=== PATIENT | female | born 1995 | race Caucasian/White ===

== ENCOUNTER 2016-12-09 11:36 | Emergency (ER) | payer OTHER ==
[~2016-12-09] VITALS: Ht 154.9 cm; Wt 47.7 kg
[~2016-12-09 11:36] MED LIST: CIPR-231 PO; NOMED; PHEN-684 PO
[2016-12-09 11:44] VITALS: BP 147/91; PULSE 103; RESP 15; O2SAT 99
[2016-12-09] MEDS ORDERED: 0.9% Sodium Chloride 1,000 ML IV ONE (11:56)
[2016-12-09] MEDS ORDERED: Ondansetron 2 mg/mL 2 mL Inj IVPUSH ONE (12:00)
--- NOTE | 2016-12-09 12:03 | ED.REPORT ---
HPI-Abd Pain F Under 38 Date of Service Dec 09, 2016 ED Provider: Ricardo Kaur PA-C Ángela is an otherwise healthy 21-year-old female who presents with chief complaint of flank pain. Patient states that she developed dysuria approximately one week ago, and hematuria approximately 5 days ago. She attempted to treat herself with Pyridium, but yesterday she developed back pain and vomiting. Patient reports that she has a history of kidney infections, which have felt similar to this in the past. The patient notes blood "almost like my period" when she urinates. She admits abdominal pain, which he locates to her bilateral lower abdomen. Denies fever, chills, diarrhea, vaginal discharge, , sexual activity. Nursing Notes Stated Complaint: POSS BLADDER INFECTION/BACK PAIN Chief Complaint: Female Abdominal Pain Nursing Notes Reviewed: Yes Allergies: Coded Allergies: Penicillins (Verified Allergy, Intermediate, Nausea,Vomiting, 12/09/16) Scheduled Ciprofloxacin (Cipro) 500 Mg Tablet 500 MG PO BID Levofloxacin (Levofloxacin) 750 Mg Tablet 750 MG PO DAILY Scheduled PRN Metoclopramide (Reglan) 10 Mg Tablet 10 MG PO QID PRN PRN For Nausea Phenazopyridine (Pyridium) 200 Mg Tablet 200 MG PO TID PRN PRN For Pain Miscellaneous Medications No Historical Medication (No Historical Medication) Ea General Time Seen by MD: 11:47 Chief Complaint Other (back pain, dysuria, hematuria) Past Medical History Past Medical History Pt denies Past Surgical History Reports: Tonsillectomy Family History Patient denies Smoking History Current Every Day Smoker Social History Alcohol Use: Denies alcohol use Drug Use: Denies drug use Occupation lives with and daughter, No outside work or school Review of Systems Negative unless stated otherwise in history of present illness. Physical Exam General: Well appearing, well developed, thin, moderate distress. Patient appears to have difficulty finding position of comfort Head: Atraumatic, normocephalic. Eyes: No scleral icterus or injection. No discharge. Vision grossly intact. ENT: Voice clear, hearing grossly intact. Respiratory: Regular rate and rhythm. Breath sounds present, clear to auscultation and equal bilaterally. No respiratory distress. No increased work of breathing, speaks in complete sentences. Cardiovascular: Tachycardic rate with regular rhythm, without murmur, gallop or rub. No pedal edema. Gastrointestinal: Abdomen moderately tender globally without rebound. Bowel sounds normoactive. Skin: Warm and dry. Back: Normal to inspection, mild to moderate CVA tenderness right greater than left. : Refused Neurological: Grossly nonfocal. Psychological: Alert and oriented. Speech appropriate, linear and logical. Behavior appropriate. Initial Vital Signs Vital Signs (First) Date Time Temp Pulse Resp B/P Pulse Ox O2 Delivery O2 Flow Rate FiO2 12/09/16 11:44 36.3 103 15 147/91 99 Room Air Initial VS: Vital signs abnormal (mild tachycardia, elevated blood pressure) Interpretation & Diagnostics Lab Results Interpretation Result Diagram: 12/09/16 1206 12/09/16 1206 Test 12/09/16 12:06 12/09/16 13:17 White Blood Count 7.5th/mm3 (3.8-10.1) Red Blood Count 4.12mil/mm3 (3.90-5.20) Hemoglobin 13.0g/dL (12.0-15.6) Hematocrit 37.9% (35.0-46.0) Mean Corpuscular Volume 92.0fL (81-100) Mean Corpuscular Hemoglobin 31.6pg (27.0-35.0) Mean Corpuscular Hemoglobin Concent 34.3% (32.0-37.0) Red Cell Distribution Width 12.9% (12.3-15.4) Platelet Count 331bil/L (150-400) Neutrophils (%) (Auto) 49.3% (40-74) Lymphocytes (%) (Auto) 38.2% (14-46) Monocytes (%) (Auto) 9.3% (4-12) Eosinophils (%) (Auto) 2.7% (0-5) Basophils (%) (Auto) 0.5% (0-3) Sodium Level 141mEq/L (134-144) Potassium Level 4.0mEq/L (3.5-5.2) Chloride Level 102mEq/L (97-108) Carbon Dioxide Level 24mmol/L (18-29) Blood Urea Nitrogen 14mg/dL (6-20) Creatinine 0.62mg/dL (0.57-1.00) Estimat Glomerular Filtration Rate 171mL/min (>59) Glucose Level 78mg/dL (60-99) Calcium Level 9.2mg/dL (8.5-10.1) Total Bilirubin 0.3mg/dL (0.0-1.2) Aspartate Amino Transf (AST/SGOT) 18U/L (0-50) Alanine Aminotransferase (ALT/SGPT) 11U/L (0-32) Alkaline Phosphatase 74U/L (25-150) Total Protein 6.8g/dL (6.4-8.4) Albumin 4.4g/dL (3.4-5.0) Hold Case Top Tube Received (Received) Urine Color Straw (YELLOW) Urine Appearance Slightly cloudy Urine pH 7.5 (5.0-8.0) Urine Specific [place] 1.015 (1.003-1.035) Urine Protein Negativemg/dL (NEG,TRACE) Urine Glucose (UA) Negativemg/dL (NEGATIVE) Urine Ketones Negativemg/dL (NEGATIVE) Urine Occult Blood Small (NEGATIVE) Urine Nitrite Negative (NEGATIVE) Urine Bilirubin Negative (NEGATIVE) Urine Urobilinogen Normalmg/dL (NORMAL) Urine Leukocyte Esterase Trace (NEGATIVE) Urine RBC 3-10/hpf (0-2) Urine WBC 11-50/hpf (0-5) Urine Epithelial Cells Few/hpf (NONE-MOD) Urine Crystals Amorphous phosphates Urine Bacteria Few/hpf (NONE-FEW) Urine Hyaline Casts None/lpf (NONE) Urine Granular Casts None seen (NONE SEEN) Urine Waxy Casts None seen (NONE SEEN) Urine Red Blood Cell Casts None seen (NONE SEEN) Urine White Blood Cell Casts None seen (NONE SEEN) Urine Mucus None seen (None Seen) Urine Trichomonas None seen (NONE SEEN) Urine Yeast None (NONE SEEN) Urinalysis Comment None Urine Culture Reflexed Indicated Re-Eval/Medical Decision Med Decision/Clinical Course 21-year-old female with a history of pyelonephritis presents with a chief complaint flank pain, which she states feels similar to previous episodes. Physical examination reveals diffuse abdominal tenderness as well as bilateral CVA tenderness worse on right. Patient is afebrile and mildly tachycardic. CBC and CMP are within normal limits. Urinalysis reveals white blood cells as well as trace nitrates. Urine tox dip positive for opiates and methamphetamine. negative. Patient complains of bilateral lower abdominal pain, but refused pelvic exam. We discussed the possibility and the possible consequences of untreated pelvic inflammatory disease. Patient is quite anxious to be discharged. I discussed this case with Dr. Ashleigh Coy. We believe this is most likely early pyelonephritis, less likely to be nephrolithiasis. I feel pelvic inflammatory disease is a relatively remote possibility considering her normal white count, and her abdominal tenderness explained by presence of urinary tract infection.. We will treat with 7 days of levofloxacin. Advised primary care follow-up and provided emergency return precautions. Discharge & Departure Primary Impression: Pyelonephritis Disposition: Home Discharge Condition All VS Reviewed: Yes Condition: Stable Patient Instructions: Acute Pyelonephritis (ED) Additional Instructions: Remission for flank pain and emergency department. History physical and urinalysis suggest possibility of an early kidney infection. We will treat you with levofloxacin for 10 days. Please follow-up with her primary care provider in the next 3-4 days to be sure this progress as expected. I will also write a prescription for antinausea medication. Return to the emergency department for any new or worsening symptoms including increasing abdominal pain, vaginal bleeding/discharge, increasing back pain. Referrals: Levon Chin MD (PCP) EDSupervising Provider for APC: Ivania Coy MD copies to: Levon Chin MD, Seth PA-C Dec 09, 2016 12:03
[2016-12-09 12:14] LABS: BASOPHILS % (AUTO) 0.5 % (0-3); EOSINOPHILS % (AUTO) 2.7 % (0-5); MONOCYTES % (AUTO) 9.3 % (4-12); Mean Corpuscular Hemoglobin 31.6 pg (27.0-35.0); NEUTROPHILS % (AUTO) 49.3 % (40-74); Platelet Count 331 bil/L (150-400)
[2016-12-09 13:54] LABS: APPEARANCE,URINE SLIGHTLY CLOUDY (CLEAR,HAZY); COLOR,URINE STRAW (YELLOW); PH,URINE 7.5 (5.0-8.0)
[2016-12-09 13:55] LABS: OCCULT BLOOD,URINE SMALL (NEGATIVE); UROBILINOGEN,URINE NORMAL (NORMAL)
[2016-12-09 14:19] VITALS: BP 133/96; PULSE 88; RESP 20; O2SAT 100
[2016-12-09] MEDS ORDERED: LEVO750T39 PO (14:53)
[2016-12-09] MEDS ORDERED: METO-301 PO (14:54)
== END 2016-12-09 14:59 | disposition home or self-care (01) ==
LOC: SED 11:36
DX: N12 Tubulo-interstitial nephritis, not specified as acute or chronic (principal); B96.20 Unspecified Escherichia coli [E. coli] as the cause of diseases classified elsewhere; F17.200 Nicotine dependence, unspecified, uncomplicated; Z88.0 Allergy status to penicillin
CPT/HCPCS: 36415; 80053; 81000; 81025; 85025; 87086; 87088; 87186; 96361; 96374; 96375; 99285; J1885; J2405; J7030

== ENCOUNTER 2017-02-06 14:19 | Emergency (ER) | payer OTHER ==
[~2017-02-06 14:19] MED LIST changes: +LEVO750T39 PO; +METO-301 PO
[2017-02-06] MEDS ORDERED: Ketamine 10 mg/mL 20 mL Inj ONE (14:20)
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
[2017-02-06] MEDS ORDERED: TdaP Vaccine 0.5 mL Inj IM ONE (14:40)
[2017-02-06 14:45] LABS: BASOPHILS % (AUTO) 0.2 % (0-3); EOSINOPHILS % (AUTO) 2.4 % (0-5); Mean Corpuscular Hemoglobin 31.1 pg (27.0-35.0); Mean Corpuscular Volume 91.6 fL (81-100); Platelet Count 352 bil/L (150-400)
[2017-02-06] MEDS: fentaNYL-PF 50 mCg/mL 2 mL Inj IVPUSH PRN ×5 (15:00→17:45)
--- NOTE | 2017-02-06 15:29 | DRSVH ---
PROCEDURE: CT CHEST, ABDOMEN AND PELVIS WITH CONTRAST ([id number]) INDICATIONS: TRAUMA TECHNIQUE: After the administration of intravenous contrast, 5 mm thick sections acquired from the lung apices t o the symphysis. 5 mm thick coronal and sagittal reformats were acquired. Additional 7 mm thick cor onal maximum intensity projection (MIP) reformats acquired through the lungs. Optional 10-minute del ayed imaging may be performed from the kidneys to the bladder. For radiation dose reduction, the fol lowing was used: automated exposure control, adjustment of mA and/or kV according to patient size. COMPARISON: [facility], US, ABDOMEN SONOGRAM LIMITED, 10/23/2011, 16:25. [facility], CT, ABD/PELVIS W/CON ([facility]), 08/18/2013, 23:37. FINDINGS: Image quality: Excellent. CHEST: Lungs: No pulmonary contusions or lacerations. There is mild centrilobular emphysema. A few small 2 -4 mm nodules are seen in the right middle lobe. No acute airspace opacities. No pneumothorax or hem othorax. Central and peripheral airways appear patent and normal in caliber. Mediastinum: No mediastinal hematomas. Heart size is normal. No pericardial effusion. Thoracic ao rta and pulmonary arteries demonstrate normal size and enhancement. No mediastinal or hilar adenopat hy. Esophagus is normal in caliber. No hiatal hernia. Chest wall: No rib fractures. No subcutaneous emphysema. No axillary or supraclavicular adenopathy . Thyroid gland is normal. ABDOMEN: Solid organs: There is a 3.3 x 4.0 cm hypoenhancing mass with lobulated contour in the anterior segm ent of the right hepatic lobe, not seen on prior examinations. Liver and spleen are normal in size an d enhancement, without lacerations. Gallbladder is normal. Biliary system is non-dilated. Pancreas enhances normally, without transection. No adrenal hematomas. Both kidneys enhance normally, witho ut hydronephrosis or lacerations. Peritoneum and bowel: No free fluid or air. Unenhanced bowel loops demonstrate normal wall thicknes s and caliber. Nodes and vessels: No retroperitoneal or mesenteric adenopathy. Aorta and inferior vena cava are no rmal in size and enhancement. Miscellaneous: No ventral hernias. PELVIS: Genitourinary: Bladder wall thickness is normal. Miscellaneous: No inguinal hernias or adenopathy. Bones: Pelvic ring and hip joints appear intact. No vertebral compression fractures. IMPRESSION: 1. No traumatic injuries to the chest, abdominal or pelvis seen on CT. 2. A 3.3 x 4.0 cm hypoenhancing mass with lobulated contour in the anterior segment of the right hepa tic lobe. This was not seen on the prior examinations. This may represent focal fat, an atypical keegan ngioma or less likely a malignant hepatic neoplasm. Recommend followup ultrasound for further evaluat ion. Alternatively CT or MRI with liver protocol may be obtained. Dictated by: Mouna Vallejo M.D. on 02/06/2017 at 15:09 Approved by: Mouna Vallejo M.D. on 02/06/2017 at 15:27
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
[2017-02-06] MEDS ORDERED: Bupivacaine 0.5%/EPI 50 mL Inj SUBQ ONE (15:40)
[2017-02-06 17:12] LABS: APPEARANCE,URINE HAZY (CLEAR,HAZY); COLOR,URINE YELLOW (YELLOW); PH,URINE 5.5 (5.0-8.0)
[2017-02-06 17:13] LABS: OCCULT BLOOD,URINE LARGE (NEGATIVE); UROBILINOGEN,URINE NORMAL (NORMAL)
[2017-02-06] MEDS ORDERED: CeFAZolin 2 Gm/50 mL D5W Duplex Bag IV ONE (17:35)
[2017-02-06] MEDS ORDERED: Chlorhexidine 0.12% 15 mL Oral Solution MT ONE (17:40)
[2017-02-06] MEDS ORDERED: _HYDROcodone-APAP 7.5-325/15mL 1 mL Bottle PO PRN (17:50)
[2017-02-06] MEDS ORDERED: _Ondansetron ODT 4 mg Tablet PO PRN (17:50)
[2017-02-06] MEDS ORDERED: BACI28.4 TP (18:27)
[2017-02-06] MEDS ORDERED: HYDR15SO8 PO (18:27)
--- NOTE | 2017-02-06 19:00 | DRSVH ---
PROCEDURE: X-RAY LEFT KNEE, ONE OR TWO VIEWS ([id number]) INDICATIONS: pain TECHNIQUE: 2 views of the knee were acquired. COMPARISON: None. FINDINGS: Artifacts obscure fine bone details. Bones: No fractures or dislocations. No suspicious bony lesions. Soft tissues: No joint effusion. No suspicious soft tissue calcifications. IMPRESSION: No definitive fracture or dislocation. Artifacts obscure fine bone details. If clinical symptoms persist or clinical suspicion for pathology is high, a repeat examination is suggested. Dictated by: Mouna Vallejo M.D. on 02/06/2017 at 18:57 Approved by: Mouna Vallejo M.D. on 02/06/2017 at 18:58
--- NOTE | 2017-02-06 19:01 | DRSVH ---
PROCEDURE: X-RAY RIGHT KNEE, ONE OR TWO VIEWS ([id number]) INDICATIONS: pain TECHNIQUE: 2 views of the knee were acquired. COMPARISON: None. FINDINGS: Bones: No fractures or dislocations. No suspicious bony lesions. Soft tissues: No joint effusion. No suspicious soft tissue calcifications. IMPRESSION: No fracture or dislocation. Dictated by: Mouna Vallejo M.D. on 02/06/2017 at 18:58 Approved by: Mouna Vallejo M.D. on 02/06/2017 at 18:59
[2017-02-06] MEDS ORDERED: _Cephalexin Suspension 250 mg/5 mL PO SCH (21:30)
== END 2017-02-06 19:00 | disposition home or self-care (01) ==
LOC: EDBD 14:19 → EDUNIT# 14:19 → SED 14:19
DX: S81.012A Laceration without foreign body, left knee, initial encounter (principal); S81.011A Laceration without foreign body, right knee, initial encounter; S01.81XA Laceration without foreign body of other part of head, initial encounter; V43.92XA Unspecified car occupant injured in collision with other type car in traffic accident, initial encounter; Y93.89 Activity, other specified; Y92.410 Unspecified street and highway as the place of occurrence of the external cause; Y99.8 Other external cause status; F17.200 Nicotine dependence, unspecified, uncomplicated; Z88.0 Allergy status to penicillin; Z23 Encounter for immunization
CPT/HCPCS: 12002; 70450; 71260; 72125; 73560; 74177; 80053; 81001; 84703; 85014; 85018; 85025; 85610; 85730; 86850; 90471; 90715; 93005; 96374; 96376; 99291; G0390; G0480; J3010; Q9967

== ENCOUNTER 2017-02-16 13:29 | Emergency (ER) | payer OTHER ==
[~2017-02-16 13:29] MED LIST changes: +BACI28.4 TP; +HYDR15SO8 PO
[2017-02-16 13:47] VITALS: BP 122/88; PULSE 106; RESP 20; O2SAT 100
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
[2017-02-16] MEDS ORDERED: BACI28.4 TP (15:36)
== END 2017-02-16 15:42 | disposition left against medical advice (07) ==
LOC: SED 13:29
DX: S01.81XD Laceration without foreign body of other part of head, subsequent encounter (principal); S81.012D Laceration without foreign body, left knee, subsequent encounter